=== PATIENT | male | born 1990 | race Caucasian/White ===

== ENCOUNTER 2019-01-05 01:46 | Emergency (ER) | payer OTHER ==
[~2019-01-05] VITALS: Ht 177.8 cm; Wt 79.7 kg
[~2019-01-05 01:46] MED LIST: IBUP-1542 PO; LORA-441 PO
[2019-01-05 01:52] VITALS: BP 145/87; PULSE 72; RESP 20; Ht 177.8 cm; Wt 79.7 kg
== END 2019-01-05 03:24 | disposition home or self-care (01) ==
LOC: FTE 01:46
DX: F41.9 Anxiety disorder, unspecified (principal)
CPT/HCPCS: 93005